=== PATIENT | female | born 1970 | race Caucasian/White ===

== ENCOUNTER 2020-08-07 22:01 | Emergency (ER) | payer OTHER ==
[~2020-08-07] VITALS: Ht 167.6 cm; Wt 85.7 kg
--- NOTE | 2020-08-07 22:17 | NUR ---
ISAMAR FOR C/O GEN WEAKNESS. TESTED + FOR COVID 3 DAYS AGO S/P FALL EPISODE AT HOME, TO ER BED 16. PENDING MD RIVAS
[2020-08-07] MEDS ORDERED: KETOROLAC TROMETHAMINE INJ 30 MG/ML VIAL ONE (22:40)
[2020-08-07] MEDS: IV NS 0.9% 1,000 ML BAG IV ONE (22:53)
[2020-08-07] MEDS: KETOROLAC TROMETHAMINE INJ 30 MG/ML VIAL IV ONE (22:53)
[2020-08-07 22:57] LABS: HEMATOCRIT 44 % (33-45); HEMOGLOBIN 14.9 g/dL (11.5-14.8); LYMPHOCYTES # (AUTO) 1.1 /CMM (0.8-4.8); LYMPHOCYTES % (AUTO) 25.7 % (20.0-44.0); MEAN CORPUSCULAR HGB CONC 34 g/dl (31.0-36.0); MEAN CORPUSCULAR VOLUME 94 fL (82-100); MONOCYTES # (AUTO) 0.6 /CMM (0.1-1.30); MONOCYTES % (AUTO) 13.8 % (2.0-12.0); NEUTROPHILS # (AUTO) 2.5 /CMM (1.8-8.9); NEUTROPHILS % (AUTO) 59.5 % (43.0-81.0); PLATELET COUNT (AUTO) 170 /CMM (150-450); RED BLOOD CELL COUNT(AUTO) 4.71 MIL/uL (4.0-5.2); WHITE BLOOD COUNT (AUTO) 4.2 K/uL (4.3-11.0)
--- NOTE | 2020-08-07 23:06 | NUR ---
TECH AT BED SIDE FOR XRAY
[2020-08-07 23:12] LABS: CARBON DIOXIDE 28 mmol/L (21-32); CHLORIDE 103 mmol/L (98-107); CREATININE 1.2 mg/dL (0.6-1.3); GLUCOSE 101 mg/dL (74-106); POTASSIUM 3.9 mmol/L (3.5-5.1); SODIUM SERUM 139 mmol/L (136-145); UREA NITROGEN, BLOOD 10 mg/dL (7-18)
[2020-08-07 23:13] LABS: CALCIUM, SERUM 8.5 mg/dL (8.5-10.1)
[2020-08-07 23:16] LABS: ALANINE AMINOTRANSFERASE 22 U/L (12-78); ALBUMIN 3.4 g/dL (3.4-5.0); ALKALINE PHOSPHATASE 58 U/L (46-116); ASPARTATE AMINOTRANSFERASE 22 U/L (15-37); BILIRUBIN,DIRECT 0.1 mg/dL (0.0-0.2); BILIRUBIN,TOTAL 0.2 mg/dL (0.2-1.0); TOTAL PROTEIN, SERUM 8.4 g/dL (6.4-8.2)
[2020-08-07] MEDS ORDERED: DEXAMETHASONE SOD PHOSPHATE 10 MG/ML VIAL ONE (23:51)
[2020-08-07] MEDS: DEXAMETHASONE SOD PHOSPHATE 10 MG/ML VIAL IV ONE (23:57)
--- NOTE | 2020-08-08 00:31 | NUR ---
Patient discharged to home in stable condition. Written and verbal after care instructions given. Patient verbalizes understanding of instruction.IV removed. Catheter intact and site benign. Pressure and 4x4 applied to site. No bleeding noted.
[2020-08-08 00:32] VITALS: BP 158/88
== END 2020-08-08 00:32 | disposition home or self-care (01) ==
LOC: ER 22:05
DX: U07.1 COVID-19 (principal); I10 Essential (primary) hypertension; G43.909 Migraine, unspecified, not intractable, without status migrainosus; Z90.49 Acquired absence of other specified parts of digestive tract; Z60.2 Problems related to living alone
CPT/HCPCS: 36415; 71045; 80048; 80076; 84484; 85025; 93005; 96361; 96374; 96375; 99285; J1100; J1885; J7030

== ENCOUNTER 2021-01-21 16:20 | Emergency (ER) | payer OTHER ==
[~2021-01-21] VITALS: Ht 167.6 cm; Wt 81.6 kg
--- NOTE | 2021-01-21 16:44 | NUR ---
CALLED IN ED WAITING ROOM. NO RESPONSE
[2021-01-21] MEDS ORDERED: ACETAMINOPHEN ES 500 MG TABLET ONE (16:58)
[2021-01-21] MEDS ORDERED: ACETAMINOPHEN ES 500 MG TABLET PO ONE (17:00)
--- NOTE | 2021-01-21 17:00 | NUR ---
BIBS FOR C/O L WRIST/LFA PAIN S/P TRIP ON BOXES 1 HOUR AGO. DENIES HEAD INJURY. RATES PAIN 9/10. DENIES NUMBNESS/TINGLING IN THE EXTREMITY. WILL CONTINUE TO MONITOR THE PATIENT.
[2021-01-21] MEDS ORDERED: IBUP-1955 PO (17:43)
[2021-01-21] MEDS ORDERED: TRAM50TA2 PO (17:43)
[2021-01-21 17:53] VITALS: BP 131/75
--- NOTE | 2021-01-21 17:53 | NUR ---
Patient discharged to home in stable condition. Written and verbal after care instructions given. Patient verbalizes understanding of instruction.
== END 2021-01-21 17:53 | disposition home or self-care (01) ==
LOC: ER 16:41
DX: M25.532 Pain in left wrist (principal); M79.632 Pain in left forearm; I10 Essential (primary) hypertension; Z90.49 Acquired absence of other specified parts of digestive tract; Z60.2 Problems related to living alone; Z79.899 Other long term (current) drug therapy; W18.09XA Striking against other object with subsequent fall, initial encounter; Y93.89 Activity, other specified; Y92.89 Other specified places as the place of occurrence of the external cause; Y99.8 Other external cause status
CPT/HCPCS: 73090-TC; 73110; 73130-TC

== ENCOUNTER 2021-03-04 00:04 | Emergency (ER) | payer OTHER ==
[~2021-03-04] VITALS: Ht 167.6 cm; Wt 99.8 kg
[~2021-03-04 00:04] MED LIST: IBUP-1955 PO; TRAM50TA2 PO
[2021-03-04 00:44] VITALS: BP 152/83
[2021-03-04 00:48] LABS: BASOPHILS # (AUTO) 0.1 K/uL (0.0-0.2); BASOPHILS % (AUTO) 1.9 % (0.0-2.0); EOSINOPHILS % (AUTO) 1.1 % (0.0-6.0); HEMATOCRIT 40 % (33-45); HEMOGLOBIN 13.3 g/dL (11.5-14.8); LYMPHOCYTES # (AUTO) 2.7 K/uL (0.8-4.8); LYMPHOCYTES % (AUTO) 45.2 % (20.0-44.0); MEAN CORPUSCULAR HGB CONC 33 g/dl (31.0-36.0); MEAN CORPUSCULAR VOLUME 91 fL (82-100); MONOCYTES # (AUTO) 0.6 K/uL (0.1-1.30); MONOCYTES % (AUTO) 10.9 % (2.0-12.0); NEUTROPHILS # (AUTO) 2.4 K/uL (1.8-8.9); NEUTROPHILS % (AUTO) 40.9 % (43.0-81.0); PLATELET COUNT (AUTO) 192 K/uL (150-450); RED BLOOD CELL COUNT(AUTO) 4.37 MIL/uL (4.0-5.2); WHITE BLOOD COUNT (AUTO) 5.9 K/uL (4.3-11.0)
[2021-03-04] MEDS ORDERED: IOHEXOL-350 100 ML VIAL IV ONE (01:04)
[2021-03-04] MEDS ORDERED: CT SWABBABLE VALVE TRANS SET 1 EA INFUS.SET MC ONE (01:04)
[2021-03-04] MEDS ORDERED: IV NS 0.9% 0 ML IV ONE (01:04)
[2021-03-04 01:11] LABS: CARBON DIOXIDE 26 mmol/L (21-32); CHLORIDE 107 mmol/L (98-107); GLUCOSE 99 mg/dL (74-106); POTASSIUM 3.8 mmol/L (3.5-5.1); SODIUM SERUM 142 mmol/L (136-145); UREA NITROGEN, BLOOD 16 mg/dL (7-18)
[2021-03-04 01:25] LABS: ALANINE AMINOTRANSFERASE 16 U/L (12-78); ALKALINE PHOSPHATASE 79 U/L (46-116); ASPARTATE AMINOTRANSFERASE 15 U/L (15-37); BILIRUBIN,DIRECT 0.1 mg/dL (0.0-0.2); BILIRUBIN,TOTAL 0.2 mg/dL (0.2-1.0)
[2021-03-04 01:33] LABS: CALCIUM, SERUM 8.4 mg/dL (8.5-10.1)
[2021-03-04] MEDS ORDERED: HYDROMORPHONE 1 MG/1 ML DISP.SYRIN IV ONE (02:00)
[2021-03-04] MEDS ORDERED: HYDROMORPHONE 1 MG/1 ML DISP.SYRIN ONE (02:05)
--- NOTE | 2021-03-04 02:10 | NUR ---
DR. RAHMAN AT BEDSIDE.
--- NOTE | 2021-03-04 03:09 | NUR ---
TISHA BAUER TALKING TO LISSA BAUER FOR PEER TO PEER.
--- NOTE | 2021-03-04 04:10 | NUR ---
[facility] [id number] CALL FOR REPORT: [phone]
--- NOTE | 2021-03-04 04:24 | NUR ---
CALLED IN REPORT TO MINH RODRIGUEZ [employer] FOR LEAD WORKER OF HOUSEKEEPING AND LAUNDRY 7- 7:30AM
--- NOTE | 2021-03-04 05:12 | NUR ---
ACCEPTING MD: DR. NIETO
[2021-03-04] MEDS ORDERED: HYDR-4209 PO (05:24)
== END 2021-03-04 05:44 | disposition left against medical advice (07) ==
LOC: ER 00:10
DX: R07.9 Chest pain, unspecified (principal); I71.2 Thoracic aortic aneurysm, without rupture; R94.31 Abnormal electrocardiogram [ECG] [EKG]; Z20.822 Contact with and (suspected) exposure to COVID-19; Z86.16 Personal history of COVID-19; Z87.892 Personal history of anaphylaxis; Z91.013 Allergy to seafood; Z88.0 Allergy status to penicillin; I10 Essential (primary) hypertension; Z53.29 Procedure and treatment not carried out because of patient's decision for other reasons
CPT/HCPCS: 36415; 71045; 80048; 80076; 83880; 84484; 85025; 85378; 87426; 93005; 96374; 99291; C9803; J1170; J7050; Q9967

== ENCOUNTER 2022-10-12 22:34 | Emergency (ER) | payer BC, OTHER ==
[~2022-10-12] VITALS: Ht 167.6 cm; Wt 86.2 kg
[~2022-10-12 22:34] MED LIST changes: +HYDR-4209 PO
--- NOTE | 2022-10-12 22:49 | NUR ---
cp x1hr, radiating to R arm. hx of 3.9cm stable aortic aneurysm
[2022-10-12] MEDS ORDERED: MORPHINE SULFATE INJ 4 MG/ML DISP.SYRIN ONE (22:58)
--- NOTE | 2022-10-12 22:59 | NUR ---
XRAY AT [facility]
[2022-10-12] MEDS ORDERED: MORPHINE SULFATE INJ 2 MG/ML DISP.SYRIN IV ONE (23:00)
[2022-10-12] MEDS ORDERED: KETOROLAC TROMETHAMINE INJ 30 MG/ML VIAL ONE (23:11)
--- NOTE | 2022-10-12 23:16 | NUR ---
IV STARTED ON L AC 20G
--- NOTE | 2022-10-12 23:16 | NUR ---
Note rossana in ED - 10/12/22 at 2319 by PTOLENTINO IV STARTED ON LFA 20G
[2022-10-12] MEDS ORDERED: KETOROLAC TROMETHAMINE INJ 30 MG/ML VIAL IV ONE (23:30)
[2022-10-12 23:50] LABS: BASOPHILS # (AUTO) 0.1 K/uL (0.0-0.2); BASOPHILS % (AUTO) 0.9 % (0.0-2.0); EOSINOPHILS % (AUTO) 1.6 % (0.0-6.0); HEMATOCRIT 41 % (33-45); HEMOGLOBIN 13.2 g/dL (11.5-14.8); LYMPHOCYTES # (AUTO) 3.2 K/uL (0.8-4.8); LYMPHOCYTES % (AUTO) 38.3 % (20.0-44.0); MEAN CORPUSCULAR HGB CONC 33 g/dl (31.0-36.0); MEAN CORPUSCULAR VOLUME 90 fL (82-100); MONOCYTES # (AUTO) 0.7 K/uL (0.1-1.30); NEUTROPHILS # (AUTO) 4.3 K/uL (1.8-8.9); NEUTROPHILS % (AUTO) 51.2 % (43.0-81.0); PLATELET COUNT (AUTO) 195 K/uL (150-450); RED BLOOD CELL COUNT(AUTO) 4.54 MIL/uL (4.0-5.2); WHITE BLOOD COUNT (AUTO) 8.4 K/uL (4.3-11.0)
[2022-10-13 00:05] LABS: D-DIMER 0.45 mg/L(FEU (0.17-0.50)
[2022-10-13 00:15] LABS: CALCIUM, SERUM 9.2 mg/dL (8.5-10.1); CARBON DIOXIDE 26 mmol/L (21-32); CHLORIDE 107 mmol/L (98-107); CREATININE 0.9 mg/dL (0.6-1.3); GLUCOSE 118 mg/dL (74-106); POTASSIUM 3.6 mmol/L (3.5-5.1); SODIUM SERUM 142 mmol/L (136-145); UREA NITROGEN, BLOOD 16 mg/dL (7-18)
[2022-10-13 00:21] LABS: ALANINE AMINOTRANSFERASE 25 U/L (12-78); ALBUMIN 3.3 g/dL (3.4-5.0); ALKALINE PHOSPHATASE 112 U/L (46-116); ASPARTATE AMINOTRANSFERASE 23 U/L (15-37); BILIRUBIN,DIRECT 0.1 mg/dL (0.0-0.2); BILIRUBIN,TOTAL 0.2 mg/dL (0.2-1.0); TOTAL PROTEIN, SERUM 7.7 g/dL (6.4-8.2)
--- NOTE | 2022-10-13 01:18 | NUR ---
PATIENT CARE TECHNICIAN AT PT'S BEDSIDE
[2022-10-13 02:39] VITALS: BP 117/74
--- NOTE | 2022-10-13 02:41 | NUR ---
Patient discharged to home in stable condition. Written and verbal after care instructions given. Patient verbalizes understanding of instruction. IV removed. Catheter intact and site benign. Pressure and 4x4 applied to site. No bleeding noted.
== END 2022-10-13 02:41 | disposition home or self-care (01) ==
LOC: ER 22:36
DX: R07.9 Chest pain, unspecified (principal); I10 Essential (primary) hypertension; E78.00 Pure hypercholesterolemia, unspecified; Z86.16 Personal history of COVID-19; Z91.013 Allergy to seafood; Z88.0 Allergy status to penicillin; Z60.2 Problems related to living alone; Z79.899 Other long term (current) drug therapy
CPT/HCPCS: 99285; 96374; 71045; 93005; 85025; 80048; 80076; 85378; 36415 ×2; 84484 ×2; 85730; 83880; J1885; J2270